=== PATIENT | male | born 2000 | race African-American/Black ===

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

== ENCOUNTER 2025-03-03 16:58 | Emergency (ER) | payer MEDICAID, OTHER ==
[~2025-03-03] VITALS: Ht 175.3 cm; Wt 58.0 kg
[2025-03-03 17:05] VITALS: BP 126/81; TEMP 36.6; O2SAT 99
[2025-03-03 17:27] VITALS: PULSE 82; RESP 18; O2SAT 100
== END 2025-03-03 19:08 | disposition left against medical advice (07) ==
LOC: ER 16:58
DX: R07.81 Pleurodynia (principal); Z53.21 Procedure and treatment not carried out due to patient leaving prior to being seen by health care provider
CPT/HCPCS: 99281

== ENCOUNTER 2025-03-04 09:37 | Emergency (ER) | payer OTHER ==
[~2025-03-04] VITALS: Ht 177.8 cm; Wt 75.0 kg
[2025-03-04 09:43] VITALS: O2SAT 99
[2025-03-04 10:02] VITALS: BP 113/64; PULSE 79; RESP 16; TEMP 36.8; O2SAT 100
== END 2025-03-04 14:20 | disposition home or self-care (01) ==
LOC: ER 09:37
DX: Z00.00 Encounter for general adult medical examination without abnormal findings (principal); R53.83 Other fatigue
CPT/HCPCS: 71045; 99283